=== PATIENT | male | born 1955 | race African-American/Black ===

== ENCOUNTER → 2018-10-02 | Outpatient (CLI) | payer BC ==
--- NOTE | 2018-10-06 10:56 | PCVCIMAG ---
APPROVED REPORT Study performed: 10/02/2018 11:44:47 EXAM: Comprehensive 2D, Doppler, and color-flow Echocardiogram Patient Location: Echo lab Room #: 2Status: routine BSA: 2.44 HR: 55 bpmBP: 178/96 mmHg Rhythm: Bradycardia Other Information Study Quality: Good Risk Factors: Cardiac Risk Factors: Hyperlipidemia Indications Dyspnea Chest Pain 2D Dimensions IVSd: 9.04 (7-11mm)LVOT Diam: 23.04 (18-24mm) LVDd: 60.22 mm PWd: 9.73 (7-11mm)Ascending Ao: 34.76 (22-36mm) LVDs: 43.44 (25-40mm) Left Atrium: 42.02 (27-40mm) Aortic Root: 32.80 mm LV Single Plane 4CH: 56.28 % LV Single Plane 2CH: 62.66 % Biplane EF: 59.8 % Volumes Left Atrial Volume (Systole) Biplane LA Volume: 73.00 mLLA ESV Index: 30.00 mL/m2 Aortic Valve AoV Peak Bryson.: 2.03 m/s AO Peak Gr.: 16.98 mmHgLVOT Max P.98 mmHg AO Mean Gr.: 10.25 mmHgLVOT Mean P.62 mmHg AO V2 Mean: 1.54 m/sLVOT Max V: 0.86 m/s AO V2 VTI: 52.82 cmLVOT Mean V: 0.60 m/s STEPHANE (VTI): 1.60 [id number] V1 VTI: 20.26 cm STEPHANE Vmax: 1.75 cm2 SV (LVOT): 84.42 mL Mitral Valve E/A Ratio: 1.0 MV Decel. Time: 175.44 ms MV E Max Bryson.: 0.72 m/s MV A Bryson.: 0.71 m/s IVRT: 107.27 ms TDI E/Lateral E': 8.00E/Medial E': 14.40 Medial E' Bryson.: 0.05 m/s Lateral E' Bryson.: 0.09 m/s Pulmonary Valve PV Peak Bryson.: 1.04 m/sPV Peak Gr.: 4.35 mmHg Pulmonary Vein P Vein S: 0.47 m/sP Vein A: 0.27 m/s P Vein D: 0.52 m/sP Vein A Dur.: 121.1 msec P Vein S/D Ratio: 0.90 Tricuspid Valve TR Peak Bryson.: 1.38 m/s TR Peak Gr.: 7.60 mmHg PA Pressure: 15.00 mmHg Left Ventricle Left ventricle is mildly dilated. There is normal LV segmental wall motion. There is normal left ventricular wall thickness. Left ventricular systolic function is normal. The left ventricular ejection fraction is within the normal range. LVEF is 60%. The left ventricular diastolic function is normal. Right Ventricle The right ventricle is normal size. The right ventricular systolic function is normal. Atria The left atrium size is normal. The right atrium size is normal. Aortic Valve Aortic valve is trileaflet. Aortic valve leaflets are moderately sclerotic but open well. Trace to mild aortic regurgitation. Mild aortic stenosis. Highest mean aortic valve gradient is _10 mmHg. Peak aortic valve gradient is 17_mmHg. Calculated STEPHANE by the continuity equation is 1.8_cm2. Mitral Valve The mitral valve is normal in structure. Trace mitral regurgitation. No evidence of mitral valve stenosis. Tricuspid Valve The tricuspid valve is normal in structure. Trace tricuspid regurgitation with a PA pressure of 15 mmHg. No pulmonary hypertension. Pulmonic Valve The pulmonary valve is normal in structure. There is no pulmonic valvular regurgitation. Great Vessels The aortic root is normal in size. The ascending aorta is normal in size. IVC is normal in size and collapses >50% with inspiration. Pericardium There is no pericardial effusion. There is no pleural effusion. <Conclusion> Left ventricle is mildly dilated. LVEF is 60%. Aortic valve is trileaflet. Aortic valve leaflets are moderately sclerotic but open well. Trace to mild aortic regurgitation. Mild aortic stenosis. Highest mean aortic valve gradient is _10 mmHg. Peak aortic valve gradient is 17_mmHg. Calculated STEPHANE by the continuity equation is 1.8_cm2. The mitral valve is normal in structure. Trace mitral regurgitation. The tricuspid valve is normal in structure. Trace tricuspid regurgitation with a PA pressure of 15 mmHg. No pulmonary hypertension. The pulmonary valve is normal in structure. There is no pericardial effusion.
--- NOTE | 2018-10-06 12:40 | PCVCIMAG ---
APPROVED REPORT Imaging Protocol: Rest Tc-99m/Stress Tc-99m 1 day Study performed: 10/02/2018 13:21:26 Indication: Chest pain, Dyspnea Patient Location: Out-Patient Stress Nurse: Cira Silverman RN MT Tech:Kim HigginsYISELMT Ht: 6 ft 3 in Wt: 235 lbs BSA: 2.35 m2 HR: 55 bpm BP: 189/88 mmHg BMI: 29.3 Rhythm: Sinus Bradycardia Medical History Medical History: Diabetes, Hyperlipidemia Medications: Actos, Zocor, Januvia Allergies: No known drug allergies Cardiac Risk Factors: Age Pretest Chest Pain Characteristics: No chest pain Exercise History: Physically active Resting Data Rest SPECT myocardial perfusion imaging was performed in supine position 45 minutes following the intravenous injection of 10.7 mCi of Tc-99m Sestamibi. Time of rest injection: 1245 Date: 10/02/2018 Administration Route: IV Administration Site: Right AC Exercise Stress At peak stress, the patient was injected intravenously with 35.9mCi of Tc-99m Sestamibi. Time of stress injection: 1400 Date: 10/02/2018 Administration Route: IV Administration Site: Right AC Patient continued to exercise for 1 minute(s). Gated Stress SPECT was performed 30 minutes after stress injection. The images were gated to evaluate regional wall motion and calculate left ventricular ejection fraction. Stress Test Details Stress Test: Exercise stress testing was performed using a Vladislav protocol. HRMax Heart Rate (APMHR): 155 bpm Resting HR: 98 bpmTarget HR (85% APMHR): 131 bpm Max HR Achieved: 142 bpm % of APMHR: 91 Recovery HR: 106 bpm HR response to stress: Normal HR response to stress BP Resting BP: 134/79 mmHg Max BP: 146/70 mmHg Recovery BP: 121/63 mmHg BP response to stress: Normal blood pressure response to stress. ECG Resting ECG: Sinus Bradycardia Stress ECG: Sinus Tachycardia Maximum ST Deviation: 1.65 mm Arrhythmia: VPC's Recovery ECG: Sinus Rhythm Clinical Reason for Termination: Dyspnea, Maximal effort Stress Symptoms: Dyspnea Exercise duration: 7 min 00 sec Exercise capacity: 10.10 METs Symptoms resolved during recovery. Stress ECG Conclusion 1. Subjectively negative for ischemia 2. Electrocardiographically abnormal with development of ST segment depression downsloping with exercise 3. Reduced functional capacity Study Data Post stress, the left ventricular ejection was 50%.. SSS: 0 SRS: 5 SDS: 0 TID = 0.76. Perfusion There is a medium area of moderately reduced uptake in the entire segment of the inferior wall which is seen on the stress images as well as the resting images. This area thickens and moves normally and is most consistent with attenuation artifact. Wall Motion Normal left ventricular wall motion. Nuclear Conclusion ECG Findings: positive for ischemia Clinical Findings: equivocal Nuclear Findings: negative for ischemia although inferior attenuation may hide small region of ischemia Exercise Capacity: reduced Left Ventricular Function: abnormal 1. Low to intermediate risk study based on absence of inducible ischemia but ST segment changes suggestive of of ischemia noted Interpreted by: Hoa Mcdonald MD Electronically Approved: 10/06/2018 12:39:23 <Conclusion> 1. Subjectively negative for ischemia 2. Electrocardiographically abnormal with development of ST segment depression downsloping with exercise 3. Reduced functional capacity
== END | disposition home or self-care (01) ==
LOC: PCVCIMAG 11:19
PROVIDERS: ATTEND Internal Medicine
DX: I35.0 Nonrheumatic aortic (valve) stenosis (principal); R07.9 Chest pain, unspecified; R06.00 Dyspnea, unspecified
CPT/HCPCS: 78452; 93017; 93306; A9500